=== PATIENT | female | born 1960 | race Hispanic/Latino ===

== ENCOUNTER 2024-12-17 11:28 | Observation (INO) | payer OTHER, SELFPAY ==
[2024-12-17 12:31] LABS: Acetaminophen Less than 10 mcg/mL (Less than 10); Alcohol Less than 10.0 mg/dL (Less than 10); Salicylate Less than 8.0 mg/dL (Less than 8.0)
[2024-12-17 12:33] LABS: #Basophils Less than 0.03 10x3/uL (0.0-0.2); %Basophils 0.5 % (0.0-1.0); %Eosinophils 2.6 % (0.0-10.0); %Lymphocytes 38.4 % (21.0-51.0); %Monocytes 11.5 % (0.0-10.0); %Neutrophils 46.8 % (42.0-75.0); ALT (SGPT) 29 U/L (8-55); AST (SGOT) 47 U/L (5-34); Albumin 3.1 g/dL (3.4-4.8); Alkaline Phosphatase 91 U/L (40-110); Anion Gap 13 mmol/L (10-20); BUN (Urea Nitrogen) 12 mg/dL (9.8-20.1); Calc. Creatinine Clearance 0 mL/min (70-130); Calcium 8.8 mg/dL (7.8-10.44); Carbon Dioxide 26 mmol/L (23-31); Chloride 110 mmol/L (98-107); Estimated GFR 88; Globulin 4.3 g/dL (2.4-3.5); Glucose 133 mg/dL (80-115); Hematocrit 38.1 % (36.0-47.0); Hemoglobin 12.2 g/dL (12.0-16.0); Mean Corpuscular Hemoglobin 31.7 pg (27.0-31.0); Mean Platelet Volume 11.5 fL (7.4-10.4); Platelet Count 85 10x3/uL (130-400); Potassium 4.1 mmol/L (3.5-5.1); Protein, Total 7.4 g/dL (5.8-8.1); RBC Distribution Width 15.9 % (11.5-14.5); Red Blood Cell (RBC) Count 3.85 mill/uL (4.20-5.40); Sodium 145 mmol/L (136-145)
[2024-12-17] MEDS ORDERED: Lactulose 20 GM (30 mL) UDCUP ONE ×2 (12:40→16:06)
[2024-12-17 12:58] LABS: Bilirubin Negative (Negative); Blood, Urine Negative (Negative); Clarity Clear (Clear); Glucose, Urine (Dipstick) Negative (Negative); Ketone, Urine Negative (Negative); Leukocyte Moderate (Negative); Nitrite Negative (Negative); Protein, Urine (Dipstick) Negative (Neg-Trace); Urobilinogen 0.2 mg/dL (Less than 2); pH, Urine 8.5 (5.0-9.0)
[2024-12-17 13:03] LABS: Bacteria/HPF 2+ HPF (None Seen); CAUTI Indications for Culture Dysuria,urgency,freq; RBC/HPF None Seen HPF (0-3)
[2024-12-17 13:04] LABS: Urine Culture Reflex No No
[2024-12-17 13:10] LABS: Amphetamine Not Detected (NotDetected); Barbiturates Screen Not Detected (NotDetected); Benzodiazepine Screen Not Detected (NotDetected); Cocaine Metabolite Screen Not Detected (NotDetected); Methadone Not Detected (NotDetected); Methamphetamine Not Detected (NotDetected); Opiate Screen Not Detected (NotDetected); Oxycodone Screen Not Detected (NotDetected); Phencyclidine (PCP) Not Detected (NotDetected); THC/Cannabinoid Screen Not Detected (NotDetected); Tricyclic Screen Not Detected (NotDetected)
[2024-12-17 13:13] LABS: Troponin I 0.059 ng/mL (< 0.028)
[2024-12-17 13:54] LABS: Burr Cells SLIGHT = 2-5 cells HPF (0-1); Macrocytosis SLIGHT = 6-15 cells HPF (0-5); Ovalocytes SLIGHT = 2-5 cells HPF (0-1); Platelet Adequacy Comment Platelets Decreased; Polychromasia SLIGHT = 2-3 cells HPF (0-2)
[2024-12-17] MEDS ORDERED: Acetaminophen 325 MG TAB PO PRN (14:45)
[2024-12-17 15:33] LABS: Troponin I 0.068 ng/mL (< 0.028)
[2024-12-17 15:39] LABS: INR-International Normal Ratio 1.4; Prothrombin Time 17.5 sec (12.0-14.7)
[2024-12-17 16:00] VITALS: BMI 34.5
[2024-12-17] MEDS: Lactulose 20 GM (30 mL) UDCUP PO SCH (16:18)
[2024-12-17] MEDS ORDERED: Dextrose 5% in Water 1,000 ML IV PRN (18:06)
[2024-12-17] MEDS ORDERED: Insulin Lispro 100 UNIT/ML 10 ML VIAL SC PRN (18:06)
[2024-12-17] MEDS ORDERED: Dextrose 50% Abboject 50 ML SYRINGE SLOW IVP PRN (18:06)
[2024-12-17] MEDS ORDERED: Glucagon 1 MG/ML KIT IM PRN (18:06)
[2024-12-17] MEDS: Famotidine 20 MG TAB PO SCH (20:18)
[2024-12-17] MEDS: Pantoprazole 40 MG DR.TAB PO SCH (20:18)
[2024-12-17] MEDS: Propranolol HCl 20 MG TAB PO SCH (20:18)
[2024-12-17 20:44] LABS: Troponin I 0.078 ng/mL (< 0.028)
[2024-12-18 00:25] LABS: Troponin I 0.071 ng/mL (< 0.028)
[2024-12-18] MEDS: hydrALAZINE 20 MG/ML VIAL SLOW IVP SCH (00:30)
[2024-12-18 04:56] LABS: #Basophils Less than 0.03 10x3/uL (0.0-0.2); %Basophils 0.5 % (0.0-1.0); %Eosinophils 1.7 % (0.0-10.0); %Lymphocytes 43.3 % (21.0-51.0); %Monocytes 10.4 % (0.0-10.0); %Neutrophils 43.9 % (42.0-75.0); Hematocrit 35.5 % (36.0-47.0); Hemoglobin 11.8 g/dL (12.0-16.0); Mean Corpuscular HGB CONC 33.2 g/dL (32.0-36.0); Mean Corpuscular Hemoglobin 31.7 pg (27.0-31.0); Mean Corpuscular Volume 95.4 fL (78.0-98.0); Mean Platelet Volume 11.4 fL (7.4-10.4); Platelet Count 78 10x3/uL (130-400); RBC Distribution Width 15.8 % (11.5-14.5); Red Blood Cell (RBC) Count 3.72 mill/uL (4.20-5.40)
[2024-12-18 05:17] LABS: ALT (SGPT) 27 U/L (Less than 34); AST (SGOT) 57 U/L (11-34); Albumin 2.7 g/dL (3.1-4.5); Alkaline Phosphatase 82 U/L (40-110); Anion Gap 11 mmol/L (10-20); BUN (Urea Nitrogen) 11 mg/dL (9.8-20.1); Bilirubin, Total 2.1 mg/dL (0.3-1.2); Calc. Creatinine Clearance 134 mL/min (70-130); Calcium 8.5 mg/dL (7.8-10.44); Carbon Dioxide 22 mmol/L (23-31); Chloride 113 mmol/L (98-107); Estimated GFR 101; Globulin 3.9 g/dL (2.4-3.5); Glucose 143 mg/dL (80-115); Potassium 3.4 mmol/L (3.5-5.1); Protein, Total 6.6 g/dL (5.8-8.1); Sodium 143 mmol/L (136-145)
[2024-12-18] MEDS: Losartan 25 MG TAB PO SCH (09:13)
[2024-12-18 09:22] LABS: Magnesium 1.2 mg/dL (1.6-2.6)
[2024-12-18] MEDS ORDERED: Electrolyte Replacement Protocol 1 EACH FS ONE (09:58)
[2024-12-18] MEDS ORDERED: Electrolyte Replacement Protocol FS PRN (10:15)
[2024-12-18] MEDS: Magnesium Sulfate In Water 4 GM in Premix 1 BAG IVPB SCH ×2 (10:27→11:12)
[2024-12-18 10:29] LABS: Phosphorus 3.2 mg/dL (2.5-4.5)
[2024-12-18] MEDS: Potassium Chloride 20 MEQ TAB PO SCH (12:26)
[2024-12-18] MEDS: Cefdinir 300 MG CAP PO SCH (12:29)
[2024-12-18 12:59] VITALS: BP 158/68; TEMP 97.9
[2024-12-20] MEDS ORDERED: FLU (Fluarix Triv) TS24-25(6MOS UP)/PF 45 MCG/0.5 ML Syringe IM ONE (18:45)
== END 2024-12-18 15:19 | disposition home or self-care (01) ==
LOC: ERS 11:28 → INTOOBSV 13:10 → ERHOLD 13:10 → 2NO 18:15
PROVIDERS: ADMIT Student in an Organized Health Care Education/Training Program; ATTEND Internal Medicine
DX: R41.82 Altered mental status, unspecified (principal); K76.82 Hepatic encephalopathy; K74.60 Unspecified cirrhosis of liver; I85.11 Secondary esophageal varices with bleeding; E11.9 Type 2 diabetes mellitus without complications; I12.9 Hypertensive chronic kidney disease with stage 1 through stage 4 chronic kidney disease, or unspecified chronic kidney disease; N18.2 Chronic kidney disease, stage 2 (mild); E11.22 Type 2 diabetes mellitus with diabetic chronic kidney disease; E78.5 Hyperlipidemia, unspecified; R79.89 Other specified abnormal findings of blood chemistry; D69.6 Thrombocytopenia, unspecified; K21.9 Gastro-esophageal reflux disease without esophagitis; E88.09 Other disorders of plasma-protein metabolism, not elsewhere classified; E66.9 Obesity, unspecified; Z87.59 Personal history of other complications of pregnancy, childbirth and the puerperium; Z68.34 Body mass index [BMI] 34.0-34.9, adult
CPT/HCPCS: 36415; 36416; 70450; 76705; 80053; 80306; 80307; 81001; 82140; 83735; 84100; 84484; 85025; 85610; 85730; 87086; 93005; G0378; J0360; J3475